=== PATIENT | female | born 1995 ===

== ENCOUNTER → 2017-11-12 | Outpatient (REF) | payer BC | LOC: M LAB REF 13:46 | DX: R30.0 Dysuria (principal) ==

== ENCOUNTER → 2017-12-02 | Outpatient (REF) | payer BC ==
[2017-12-03 00:23] LABS: CHLAMYDIA DNA AMPLIFICATION NEGATIVE (NEGATIVE); GC DNA AMPLIFICATION NEGATIVE (NEGATIVE)
== END ==
LOC: M LAB REF 19:23
DX: R30.0 Dysuria (principal)
CPT/HCPCS: 87088; 87186